=== PATIENT | male | born 2000 | race Asian ===

== ENCOUNTER 2024-06-09 18:22 | Inpatient (IN) | payer MEDICAID ==
[~2024-06-09] VITALS: Ht 172.7 cm; Wt 63.6 kg
[2024-06-09 20:30] VITALS: BP 137/101; PULSE 67; RESP 18; TEMP 98; O2SAT 99
[2024-06-09 22:00] VITALS: RESP 16; O2SAT 97
[2024-06-10] MEDS ORDERED: mag hydrox/Alum hydrox/simeth 30ml oral suspension PO PRN (00:05)
[2024-06-10] MEDS ORDERED: magnesium hydroxide 30ml (MOM) UD suspension PO PRN (00:05)
[2024-06-10] MEDS ORDERED: acetaminophen 325mg tablet PO PRN (00:05)
[2024-06-10] MEDS: traZODone 50mg tablet PO ONE (01:01)
[2024-06-10] MEDS: nicotine 21mg patch - 24 hr TD SCH (07:42)
[2024-06-10 08:00] VITALS: BP 106/67; PULSE 75; RESP 16; TEMP 97.6; O2SAT 99
[2024-06-10] MEDS: LORazepam 1 MG tablet PO PRN (09:01)
[2024-06-10 19:00] VITALS: RESP 14; O2SAT 74
[2024-06-10 20:00] VITALS: BP 119/73; PULSE 74; RESP 14; TEMP 97.6; O2SAT 98
[2024-06-10] MEDS: quetiapine 100mg tablet PO SCH (20:41)
[2024-06-10 22:00] VITALS: BP 119/73; PULSE 74; RESP 14; TEMP 97.6; O2SAT 98
[2024-06-11] MEDS ORDERED: LORazepam 1 MG tablet PO PRN (00:35)
[2024-06-11 07:34] VITALS: BP 125/77; PULSE 86; RESP 15; TEMP 98.9; O2SAT 97
[2024-06-11] MEDS: aripiprazole 10MG tablet PO SCH (08:07)
[2024-06-11] MEDS: benztropine 1mg tablet PO SCH (08:07)
[2024-06-11 10:07] LABS: BASOPHILS % (AUTO) 0.6 % (0-1); EOSINOPHILS # (AUTO) 0.1 X10'3 (0-0.9); HEMOGLOBIN 17.3 g/dl (14.0-17.9); LYMPHOCYTES # (AUTO) 0.8 X10'3 (1.1-4.8); LYMPHOCYTES % (AUTO) 17.3 % (21-51); MEAN CORPUSCULAR HEMOGLOBIN 30.7 PG (27.0-31.0); MEAN CORPUSCULAR HGB CONC 33.9 g/dL (33.0-36.5); MEAN CORPUSCULAR VOLUME 90.5 FL (78-98); MEAN PLATELET VOLUME 8.8 FL (7.4-10.4); MONOCYTES # (AUTO) 0.4 X10'3 (0-0.9); MONOCYTES % (AUTO) 7.7 % (2-12); NEUTROPHILS # (AUTO) 3.5 X10'3 (1.8-7.7); NEUTROPHILS % (AUTO) 72.4 % (42-75); PLATELET COUNT 191 X10'3 (140-440); RED BLOOD COUNT 5.63 X10'6 (4.70-6.10); RED CELL DISTRIBUTION WIDTH 13.1 % (11.5-14.5); WHITE BLOOD COUNT 4.8 X10'3 (4.5-11.0)
[2024-06-11 10:49] LABS: ALANINE AMINOTRANSFERASE 19 U/L (12-78); ALBUMIN 4.2 G/DL (3.4-5.0); ALBUMIN/GLOBULIN RATIO 1.4 (1.1-1.5); ALKALINE PHOSPHATASE 70 IU/L (46-116); ANION GAP 7 (8-16); ASPARTATE AMINO TRANSFERASE 15 U/L (10-37); BILIRUBIN,TOTAL 0.6 MG/DL (0.1-1.0); BLOOD UREA NITROGEN 14 MG/DL (7-18); BUN/CREATININE RATIO 12.3 (10.0-20.0); CALCIUM 9.5 MG/DL (8.5-10.1); CHLORIDE 104 MMOL/L (99-107); CHOL/HDL RATIO 2.1 (0.00-4.99); CHOLESTEROL 141 MG/DL (0-200); CREATININE 1.14 MG/DL (0.60-1.10); GLUCOSE 61 MG/DL (70-104); HDL CHOLESTEROL 66 MG/DL (35-60); LDL CHOLESTEROL 71 MG/DL (50-100); POTASSIUM 4.1 MMOL/L (3.5-5.1); SODIUM 142 MMOL/L (135-145); TOTAL CARBON DIOXIDE 31.1 MMOL/L (24-32); TOTAL PROTEIN 7.3 G/DL (6.4-8.2); TRIGLYCERIDES 35 MG/DL (20-135); eCRCL 91 ML/MIN; eGFR 80 ML/MIN
[2024-06-11 11:07] LABS: HEMOGLOBIN A1C 4.6 % (4.5-6.2)
[2024-06-11 19:19] VITALS: BP 118/70; PULSE 63; RESP 18; TEMP 97.9; O2SAT 97
[2024-06-11 19:21] VITALS: RESP 18; O2SAT 97
[2024-06-12 07:20] VITALS: RESP 16; O2SAT 98
[2024-06-12] MEDS: hydrOXYzine 25 MG tablet PO SCH (07:41)
[2024-06-12 08:00] VITALS: BP 112/82; PULSE 70; RESP 14; TEMP 97.5; O2SAT 100
[2024-06-12] MEDS: NICOTINE POLACRILEX 2 MG LOZENGE BC PRN (17:07)
[2024-06-12 19:00] VITALS: RESP 14; O2SAT 98
[2024-06-12] MEDS: hydrOXYzine 25 MG tablet PO PRN (19:42)
[2024-06-12 20:00] VITALS: BP 147/94; PULSE 73; RESP 14; TEMP 97.3; O2SAT 98
[2024-06-13] MEDS: hydrOXYzine 25 MG tablet PO SCH (07:44)
[2024-06-13 09:25] VITALS: BP 121/88; PULSE 87; RESP 16; TEMP 97.9; O2SAT 100
[2024-06-13 10:45] VITALS: RESP 16; O2SAT 100
[2024-06-13] MEDS ORDERED: quetiapine 100mg tablet PO PRN (16:00)
[2024-06-13] MEDS ORDERED: benztropine 1mg tablet PO PRN (16:00)
[2024-06-13 19:00] VITALS: RESP 22; O2SAT 98
[2024-06-13 20:00] VITALS: BP 120/76; PULSE 91; RESP 16; TEMP 98.2; O2SAT 100
[2024-06-13] MEDS: divalproex sod 250mg ER (24-hour) tablet PO SCH (20:53)
[2024-06-13] MEDS: aripiprazole 10MG tablet PO SCH (20:54)
[2024-06-14 10:16] VITALS: BP 111/83; PULSE 82; RESP 14; TEMP 97.7; O2SAT 98
[2024-06-14 10:19] VITALS: RESP 14; O2SAT 98
[2024-06-14] MEDS ORDERED: meclizine 12.5mg tablet PO PRN (17:05)
[2024-06-14 19:29] VITALS: BP 124/92; PULSE 76; RESP 16; TEMP 97.3; O2SAT 99
[2024-06-14 19:31] VITALS: RESP 16; O2SAT 99
[2024-06-15 07:00] VITALS: RESP 16; O2SAT 95
[2024-06-15 07:30] VITALS: BP 117/91; PULSE 67; RESP 16; TEMP 97.7; O2SAT 100
[2024-06-15 19:28] VITALS: BP 123/84; PULSE 87; RESP 20; TEMP 97.7; O2SAT 100
[2024-06-15] MEDS: acetaminophen 325mg tablet PO PRN (20:02)
[2024-06-16 07:00] VITALS: RESP 14; O2SAT 100
[2024-06-16 08:00] VITALS: BP 122/89; PULSE 72; RESP 14; TEMP 97.6; O2SAT 100
[2024-06-16] MEDS ORDERED: BENZ1TAB78 PO (11:16)
[2024-06-16] MEDS ORDERED: QUET100T34 PO (11:16)
[2024-06-16] MEDS ORDERED: HYDR-3686 PO (11:16)
[2024-06-16] MEDS ORDERED: ARIP10TA57 PO (11:16)
== END 2024-06-16 17:42 | disposition home or self-care (01) | DRG 753 ==
LOC: ADULT MH 21:05
PROVIDERS: ADMIT Psychiatry & Neurology Psychiatry; ATTEND Psychiatry & Neurology Psychiatry
PROC: GZHZZZZ Group Psychotherapy (ICD-10-PCS; principal; 2024-06-11)
PROC: GZ51ZZZ Individual Psychotherapy, Behavioral (ICD-10-PCS; 2024-06-13)
DX: F31.4 Bipolar disorder, current episode depressed, severe, without psychotic features (principal); R45.851 Suicidal ideations; F43.10 Post-traumatic stress disorder, unspecified; F12.90 Cannabis use, unspecified, uncomplicated; F41.1 Generalized anxiety disorder
CPT/HCPCS: 36415; 80053; 80061; 83036; 85025; 87081; Q0177